=== PATIENT | male | born 1990 | race Caucasian/White ===

== ENCOUNTER 2016-07-04 21:53 | Emergency (ER) | payer OTHER ==
[~2016-07-04] VITALS: Ht 182.9 cm; Wt 106.6 kg
--- NOTE | ~2016-07-04 | EKG ---
[address] [address] ELECTROCARDIOGRAM REPORT Name: DESTINEE MCCLELLAN Room [facility]: [facility] [id number] Admission: 07/04/16 Attend Phys: Discharge: 07/04/16 Date of : 86 Report #: [id number] THIS REPORT FOR: //name// [facility] ED Test Date: 2016-07-04 Test Time: 22:32:54 Pat Name: DESTINEE MCCLELLAN Department: Room: Gender: M Care Giver: MZOOK : 1990 Requested By: Cass Toney Order Number: [id number] MD: Noam Sun Measurements Intervals [place] Rate: 76 P: 37 MO: 120 QRS: 6 QRSD: 88 T: -16 QT: 401 QTc: 451 Interpretive Statements Sinus rhythm Supraventricular bigeminy Borderline T abnormalities, diffuse leads No previous ECG available for comparison Electronically Signed On 07-05-2016 8:28:59 [employer]PATCH[employer]IE[employer] by Noam Sun [email or web address] <ELECTRONICALLY SIGNED> By: Noam Sun MD 07/05/16 0828 [id number] 31 Noam Sun MD /ARACELIS
[~2016-07-04 21:53] MED LIST: FLEXERIL PO; FLOMAX0.4 MG PO; IBUPROFEN 800800 MG PO; NOHOMEMEDICATIONS; NORCO 5-325 TA1 EACH PO; PERCOCET 5-3251 EACH PO; PHENERGAN 25 MG25 M1; ULTRAM 50MG TAB50 MG PO; ZOFRAN4 MG PO
[2016-07-04] MEDS ORDERED: ACCUNEB SO1.25 MG/1 INH (22:10)
[2016-07-04 22:31] LABS: HEMATOCRIT 45.8 % (42.0-52.0); HEMOGLOBIN 15.7 gm/dL (14.0-18.0); MANUAL DIFF YES; MCH 27.6 pg (26.0-34.0); MCHC 34.3 % (28.0-37.0); MCV 80.6 fL (80.0-100.0); PLATELET COUNT 279 thou/uL (150-400); RBC 5.68 mil/uL (4.50-6.00); RDW 13.6 % (10.5-14.5)
[2016-07-04 22:38] LABS: CALCIUM 8.9 mg/dL (8.5-10.1); CREATININE 0.9 mg/dL (0.6-1.3); POTASSIUM 3.1 mmol/L (3.5-5.1)
[2016-07-04 22:48] LABS: ABSOLUTE NEUTROPHILS 15.8 thou/uL (1.4-8.2); TOTAL CELL COUNT 100
[2016-07-04 22:49] LABS: ANISOCYTOSIS 1+; POLYCHROMASIA OCCASIONAL
[2016-07-04] MEDS ORDERED: PROAIR HFA8.5 GM INH (22:51)
[2016-07-04 23:08] VITALS: BP 159/97
== END 2016-07-04 23:10 | disposition home or self-care (01) ==
LOC: ER 21:53
PROVIDERS: Emergency Medicine
DX: J06.9 Acute upper respiratory infection, unspecified (principal); F41.9 Anxiety disorder, unspecified; R06.00 Dyspnea, unspecified